=== PATIENT | male | born 1960 | race Caucasian/White ===

== ENCOUNTER 2020-04-03 15:56 | Inpatient (IN) | payer OTHER ==
[~2020-04-03] VITALS: Ht 188 cm; Wt 96.2 kg
--- NOTE | 2020-04-03 16:00 | NUR ---
Patient came in to the er c/o chest pain 15 mins prior to arrival. On room air, breathing evenly and unlabored. connected to the monitor and pulse ox. kept comfortable, will continue to monitor accordingly.
--- NOTE | 2020-04-03 16:05 | NUR ---
Dr. Howard at bedside for eval
--- NOTE | 2020-04-03 16:09 | NUR ---
EKG IN PROGRESS AT BS
[2020-04-03 16:19] LABS: BASOPHILS # (AUTO) 0.1 /CMM (0.0-0.2); BASOPHILS % (AUTO) 0.4 % (0.0-2.0); EOSINOPHILS % (AUTO) 0.2 % (0.0-6.0); HEMATOCRIT 46 % (39-51); HEMOGLOBIN 15.1 g/dL (13.5-17.5); LYMPHOCYTES # (AUTO) 2.6 /CMM (0.8-4.8); LYMPHOCYTES % (AUTO) 19.8 % (20.0-44.0); MEAN CORPUSCULAR HGB CONC 33 g/dl (31.0-36.0); MEAN CORPUSCULAR VOLUME 83 fL (80-96); MONOCYTES % (AUTO) 7.4 % (2.0-12.0); NEUTROPHILS # (AUTO) 9.5 /CMM (1.8-8.9); NEUTROPHILS % (AUTO) 72.2 % (43.0-81.0); PLATELET COUNT (AUTO) 422 /CMM (150-450); RED BLOOD CELL COUNT(AUTO) 5.55 MIL/uL (4.5-6.0); WHITE BLOOD COUNT (AUTO) 13.2 K/uL (4.3-11.0)
[2020-04-03] MEDS ORDERED: NITROGLYCERIN PACKET 1 GM PACKET ONE (16:27)
[2020-04-03] MEDS ORDERED: ASPIRIN 325 MG TABLET ONE (16:27)
[2020-04-03] MEDS ORDERED: LORAZEPAM INJ 2 MG/ML VIAL ONE (16:27)
[2020-04-03] MEDS ORDERED: NITROGLYCERIN PACKET 1 GM PACKET TD ONE (16:30)
[2020-04-03] MEDS ORDERED: IV NS 0.9% 1,000 ML BAG IV ONE (16:30)
[2020-04-03] MEDS ORDERED: ASPIRIN 325 MG TABLET PO ONE (16:30)
[2020-04-03] MEDS ORDERED: LORAZEPAM INJ 2 MG/ML VIAL IVP ONE (16:30)
[2020-04-03 16:32] LABS: CALCIUM, SERUM 9.7 mg/dL (8.5-10.1); CARBON DIOXIDE 23 mmol/L (21-32); CHLORIDE 104 mmol/L (98-107); CREATININE 1.2 mg/dL (0.6-1.3); GLUCOSE 135 mg/dL (74-106); POTASSIUM 3.7 mmol/L (3.5-5.1); SODIUM SERUM 139 mmol/L (136-145); UREA NITROGEN, BLOOD 17 mg/dL (7-18)
[2020-04-03 16:38] LABS: ALANINE AMINOTRANSFERASE 35 U/L (12-78); ALBUMIN 4.7 g/dL (3.4-5.0); ALKALINE PHOSPHATASE 111 U/L (46-116); ASPARTATE AMINOTRANSFERASE 17 U/L (15-37); BILIRUBIN,DIRECT 0.1 mg/dL (0.0-0.2); BILIRUBIN,TOTAL 0.5 mg/dL (0.2-1.0); TOTAL PROTEIN, SERUM 7.7 g/dL (6.4-8.2)
[2020-04-03] MEDS ORDERED: HYDR-4384 PO (17:03)
[2020-04-03] MEDS ORDERED: METO25TA4 PO (17:11)
[2020-04-03] MEDS ORDERED: DISU250T7 PO (17:11)
[2020-04-03] MEDS ORDERED: ASPI-1169 PO (17:11)
[2020-04-03] MEDS ORDERED: LISD20CA PO (17:11)
[2020-04-03] MEDS ORDERED: ATOR10TA PO (17:11)
--- NOTE | 2020-04-03 17:40 | NUR ---
COVID SWAB DONE AND SENT TO LAB
[2020-04-03] MEDS ORDERED: ENALAPRILAT INJ (1.25 MG/ML) 1.25 MG/ML VIAL IV ONE (17:58)
[2020-04-03] MEDS ORDERED: ENALAPRILAT DIHYD. (2.5MG/ML) 1.25 MG/ML VIAL IV ONE (18:00)
--- NOTE | 2020-04-03 19:05 | NUR ---
PT RESTING COMFORTABLY. VSS.
[2020-04-03] MEDS ORDERED: IV NS 0.9% 1,000 ML IV PRN (19:11)
[2020-04-03] MEDS ORDERED: MAG HYDROX/AL HYDROX/SIMETH 30 ML UDC PO PRN (19:30)
[2020-04-03] MEDS ORDERED: ENALAPRILAT INJ (1.25 MG/ML) 1.25 MG/ML VIAL IV PRN (19:30)
[2020-04-03] MEDS ORDERED: ACETAMINOPHEN 325 MG TABLET PO PRN (19:30)
[2020-04-03] MEDS ORDERED: MAGNESIUM HYDROXIDE 30 ML UDC PO PRN (19:30)
[2020-04-03] MEDS ORDERED: Z GUARD REMEDY 2 OZ OINT TP PRN (19:30)
[2020-04-03] MEDS ORDERED: ONDANSETRON HCL/PF 4 MG/2 ML VIAL IVP PRN (19:30)
--- NOTE | 2020-04-03 19:53 | NUR ---
REPORT GIVEN TO [facility] FOR [facility]ILE[facility]
[2020-04-03 20:05] VITALS: BP 157/93
--- NOTE | 2020-04-03 20:05 | NUR ---
INTERACTIVE MEDIA PROJECT MANAGER NOTES RECEIVED PT FROM ER VIA GURNEY ALERT ORIENTED X4 ON ROOM AIR SPO2 99% NO SIGN AND SYMPTOMS OF RESPIRATORY DISTRESS, TRANSFER TO BED BY WALKING, V/S CHECKED BP 157/93 HR 78 RR 20 TEMP 98.3 , WITH DX OF CHEST PAIN, CURRENTLY NO COMPLAINT OF CHEST PAIN, HEAD TO TOE ASSESSMENT DONE, INITIAL ADMISSION ASSESSMENT DONE, CymbetSulma TellmeO TELE MONITOR WITH READING SINUS RHYTHM 80'S, SAFETY MEASURE INITIATED, BED ON LOWEST POSITION AND LOCKED SIDE RAILS UP CALL LIGHT WITHIN REACH,PT IS ABLE TO EAT AND DRINK WILL CONT TO MONITOR
--- NOTE | 2020-04-03 20:11 | NUR ---
PT TRANSFERED PER ACLS PROTOCOL
[2020-04-03] MEDS ORDERED: ENOXAPARIN SODIUM 40 MG/0.4 ML DISP.SYRIN SQ SCH (21:00)
[2020-04-03] MEDS: HYDROCODONE/APAP 5/325MG TABLET PO PRN (21:26)
[2020-04-03] MEDS ORDERED: ATORVASTATIN 10 MG TABLET PO SCH (22:00)
--- NOTE | 2020-04-03 22:00 | NUR ---
RN NOTES PT IS ASKING IF HE CAN HAVE FLU AND PNEUMONIA VACCINE BEFORE HE DISCHARGE WILL ENDORSE IT TO AM SHIFT NURSE
[2020-04-04] VITALS: BP 148/88
[2020-04-04 04:00] VITALS: BP 113/67
--- NOTE | 2020-04-04 04:10 | NUR ---
RN NOTES PT COMPLAIN OF HEAD ACHE 01/26 PRN NORCO GIVEN, WILL CONT TO MONITOR
[2020-04-04] MEDS: HYDROCODONE/APAP 5/325MG TABLET PO PRN ×2 (04:14→12:34)
[2020-04-04 06:52] LABS: BASOPHILS # (AUTO) 0.1 /CMM (0.0-0.2); EOSINOPHILS % (AUTO) 3.3 % (0.0-6.0); HEMATOCRIT 38 % (39-51); HEMOGLOBIN 12.7 g/dL (13.5-17.5); LYMPHOCYTES # (AUTO) 3.5 /CMM (0.8-4.8); LYMPHOCYTES % (AUTO) 39.2 % (20.0-44.0); MEAN CORPUSCULAR HGB CONC 34 g/dl (31.0-36.0); MEAN CORPUSCULAR VOLUME 82 fL (80-96); MONOCYTES # (AUTO) 0.8 /CMM (0.1-1.30); MONOCYTES % (AUTO) 8.7 % (2.0-12.0); NEUTROPHILS # (AUTO) 4.3 /CMM (1.8-8.9); NEUTROPHILS % (AUTO) 47.8 % (43.0-81.0); PLATELET COUNT (AUTO) 326 /CMM (150-450); RED BLOOD CELL COUNT(AUTO) 4.66 MIL/uL (4.5-6.0); WHITE BLOOD COUNT (AUTO) 8.9 K/uL (4.3-11.0)
--- NOTE | 2020-04-04 07:01 | NUR ---
RN CLOSING NOTES PT SLEEPING ON BED NO SIGN AND SYMPTOMS OF DISTRESS SPO2 99% VIA ROOM AIR, TELE MONITOR READS SINUS RHYTHM 80'S, NO SIGNIFICANT CHANGES ON CONDITION NOTED, NO CHEST PAIN COMPLAINED, ALL NEEDS ATTENDED, SAFETY MEASURE MAINTAINED BED ON LOWEST POSITION AND LOCKED SIDE RAILS UP X2 CALL LIGHT WITHIN REACH WILL CONT TO MONITOR
--- NOTE | 2020-04-04 07:15 | NUR ---
RN OPENING NOTE Received patient awake in bed appears calm and relaxed. On room air tolerating well no signs of distress. AO x4 tele monitor reading sinus rhythm 60-70s. RAC #18 running NS @ 75ml/hr. No co pain or discomfort at this time. Safety measures reinforced. Call light within reach. Bed locked and on lowest position. Will cont to monitor.
[2020-04-04 07:23] LABS: CALCIUM, SERUM 8.3 mg/dL (8.5-10.1); CARBON DIOXIDE 24 mmol/L (21-32); CHLORIDE 106 mmol/L (98-107); GLUCOSE 131 mg/dL (74-106); PHOSPHORUS 3.6 mg/dL (2.5-4.9); POTASSIUM 3.6 mmol/L (3.5-5.1); SODIUM SERUM 141 mmol/L (136-145); UREA NITROGEN, BLOOD 11 mg/dL (7-18)
[2020-04-04 07:24] LABS: CHOLESTEROL 146 mg/dL (<200); HDL CHOLESTEROL 41 mg/dL (40-60); LDL 91 mg/dL (0-99); THYROID STIMULATING HORMONE 1.824 uIU/mL (0.358-3.74); TRIGLYCERIDES 73 mg/dL (30-150)
--- NOTE | 2020-04-04 07:30 | NUR ---
SEEN BY DR. KRUSE. ORDERED CT ANGIO. WILL SECURE CONSENT.
[2020-04-04 08:00] VITALS: BP 130/80
[2020-04-04] MEDS ORDERED: NITROGLYCERIN 0.4 MG/TAB BOTTLE SL ONE (08:30)
[2020-04-04] MEDS ORDERED: METOPROLOL TARTRATE INJ 5 MG/5 ML AMPUL ONE ×2 (08:33→09:45)
[2020-04-04] MEDS ORDERED: NITROGLYCERIN 0.4 MG/TAB BOTTLE ONE (08:33)
[2020-04-04] MEDS: METOPROLOL TARTRATE INJ 5 MG/5 ML AMPUL IVP PRN ×3 (08:37→08:48)
--- NOTE | 2020-04-04 08:45 | NUR ---
CONSENT SIGNED. CT SCAN STAFF AT BEDSIDE. TAKEN TO CT VIA WHEELCHAIR.
[2020-04-04] MEDS ORDERED: LISDEXAMFETAMINE DIMESYLATE 10 MG PO SCH (09:00)
[2020-04-04] MEDS ORDERED: METOPROLOL SUCCINATE 25 MG TAB.SR.24H PO SCH (09:00)
[2020-04-04] MEDS ORDERED: DISULFIRAM 250 MG TABLET PO SCH (09:00)
[2020-04-04] MEDS ORDERED: ASPIRIN 81 MG TAB.CHEW PO SCH (09:00)
[2020-04-04] MEDS ORDERED: IOHEXOL-350 100 ML VIAL IV ONE (09:30)
--- NOTE | 2020-04-04 09:30 | NUR ---
PATIENT BROUGHT BACK HERE IN ROOM 108 NO SIGNS OF DISTRESS. NO CO PAIN OR DISCOMFORT.
[2020-04-04] MEDS ORDERED: IV NS 0.9% 250 ML IV ONE (09:31)
[2020-04-04 09:47] VITALS: BP 118/70
--- NOTE | 2020-04-04 09:53 | NUR ---
RN NOTES: Post CTA: CTA completed and able tolerated the procedure.
--- NOTE | 2020-04-04 14:17 | NUR ---
PATIENT GIVEN DISCHARGE INSTRUCTIONS. REMOVED IV NO SIGNS OF BLEEDING. SIGNED DISCHARGE PAPERWORK. ASSISTED TO THE LOBBY.
== END 2020-04-04 14:10 | disposition home or self-care (01) | DRG 918 ==
LOC: ER 16:05 → TELE1 19:34 → MEDSG1 04-04 08:27
PROVIDERS: ADMIT Nurse Practitioner Acute Care; ATTEND Nurse Practitioner Acute Care
DX: T40.5X1A Poisoning by cocaine, accidental (unintentional), initial encounter (principal); I16.0 Hypertensive urgency; E78.5 Hyperlipidemia, unspecified; D72.829 Elevated white blood cell count, unspecified; F90.9 Attention-deficit hyperactivity disorder, unspecified type; I10 Essential (primary) hypertension; R73.9 Hyperglycemia, unspecified; Y92.009 Unspecified place in unspecified non-institutional (private) residence as the place of occurrence of the external cause; R07.89 Other chest pain
CPT/HCPCS: 36415; 71045-TC; 75574; 80048-TC; 80061-TC; 80076-TC; 83735-TC; 84100-TC; 84443-TC; 84484-TC; 85025-TC; 87081-TC; 93307-TC; C9803-CS; G0378; J1650; J2060; J3490; J7030; J7050; Q9967